=== PATIENT | male | born 1970 | race Caucasian/White ===

== ENCOUNTER 2017-03-12 19:41 | Emergency (ER) | payer OTHER | END 2017-03-12 20:33 | disposition home or self-care (01) | LOC: ER1 19:41 | DX: S02.5XXA Fracture of tooth (traumatic), initial encounter for closed fracture (principal); K02.9 Dental caries, unspecified; Z88.1 Allergy status to other antibiotic agents; X58.XXXA Exposure to other specified factors, initial encounter | CPT/HCPCS: 96372; 99282; J1885 ==